=== PATIENT | female | born 1980 | race Native Hawaiian/Other Pacific Islander ===

== ENCOUNTER 2017-08-10 11:19 | Outpatient (CLI) | payer OTHER ==
[~2017-08-10 11:19] MED LIST: ALBU0.042 IN; CLINDAMYCIN150 MG PO; CYCL10TA35 PO; HYDACET7.5 PO; HYDR25TA15 PO; MEDROL DOSEPAK4 MG OR; PERIDEX0.12 % PO; PROVENTIL IN; TRIA0.1C5 EX; ZOLOFT25 MG PO
[2017-08-10 11:36] LABS: PLATELET COUNT 356 K/uL (152-353)
[2017-08-10 11:47] LABS: POTASSIUM 5.6 mmol/L (3.6-5.2)
== END 2017-08-10 21:35 | disposition home or self-care (01) ==
LOC: LABW 11:19
PROVIDERS: Internal Medicine Nephrology
DX: N18.3 Chronic kidney disease, stage 3 (moderate) (principal)
CPT/HCPCS: 36415; 80053; 82306; 83970; 84100; 85027